=== PATIENT | female | born 1960 | race Caucasian/White ===

== ENCOUNTER 2024-01-17 19:46 | Emergency (ER) | payer OTHER, SELFPAY ==
[2024-01-17 19:50] VITALS: BP 175/112
[2024-01-17 19:56] VITALS: BP 175/112
[2024-01-17 20:13] LABS: % Basophils 1.1 % (0-2); % Eosinophils 2.6 % (0-6); % Immature Granulocytes 0.4 % (0-0.5); % Lymphocytes 43.8 % (20.5-51.1); % Monocytes 8.3 % (1.7-9.3); % Neutrophils 43.8 % (42.2-75.2); Absolute Basophils 0.1 10^3/uL (0-0.2); Absolute Eosinophils 0.2 10^3/uL (0-0.7); Absolute Lymphocytes 3.1 10^3/uL (1.2-3.4); Absolute Monocytes 0.6 10^3/uL (0.1-0.6); Absolute Neutrophils 3.1 10^3/uL (1.4-6.5); Hematocrit 39.4 % (37.0-47.0); Hemoglobin 14.3 g/dL (12.0-16.0); Mean Corp Hgb Conc. 36.3 g/dL (33.0-37.0); Mean Corpuscular Hgb 29.9 pg (27.0-31.0); Mean Corpuscular Volume 82.4 fL (81.0-99.0); Mean Platelet Volume 8.8 fL (7.4-10.4); Nucleated Red Blood Cells % 0 %; Platelet Count 277 10^3/uL (130-400); Red Blood Cell Count 4.78 10^6/uL (4.20-5.40); Red Cell Dist. Width 11.9 % (11.5-14.5)
[2024-01-17 20:14] VITALS: BP 141/107
[2024-01-17 20:32] LABS: ALT (SGPT) 47 U/L (0-35); AST (SGOT) 40 U/L (14-36); Albumin 4.8 g/dl (3.5-5.0); Alkaline Phosphatase 99 U/L (38-126); Blood Urea Nitrogen 19 mg/dl (7-17); Calcium 9.9 mg/dl (8.4-10.2); Carbon Dioxide 23 mmol/L (22-30); Chloride 103 mmol/L (98-107); Glucose 104 mg/dl (70-99); Potassium 4.5 mmol/L (3.5-5.1); Sodium 140 mmol/L (135-145); Total Bilirubin 0.7 mg/dl (0.2-1.3); Total Protein 7.5 g/dl (6.3-8.2); eGFR > 60.00
[2024-01-17 21:00] VITALS: BP 159/104
--- NOTE | 2024-01-17 21:00 | ED.GENMED ---
History of Present Illness
General
Chief Complaint: Blood Pressure Problem
Time Seen by Provider: 01/17/24 20:43
History of Present Illness
History of Present Illness:
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 After the onset of symptoms she did
her blood pressure. Symptoms have gradually improved upon with the emergency department nearly resolved at this time. Denies any diplopia or vision loss. No headaches, chest pain, shortness of breath, nausea, or vomiting. Denies any dizziness or
gait difficulty
Past History
Past History
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
Social History
Tobacco: Non-smoker
Personal:
Living: with family
Review of Systems
Review of Systems
Allergies reviewed?: Yes
All Other Systems: ROS reviewed and negative except as documented in HPI and ROS
Phy Exam
Physical Exam
Physical Exam:
GEN: Well appearing, NAD, WDWN
HEENT: Oral mucosa moist, no scleral icterus, no nasal congestion
Cardiac: Regular rate
Lung: No respiratory distress, no tachypnea
MSK: No gross deformity or injuries
Skin: Good color, no pallor or jaundice, no rashes
Neuro: AO x3; CN II-XII grossly intact. BUE strength 5/5 in all muniz, sensation intact and symmetric. BLE strength 5/5 in all muniz, sensation intact and symmetric, horizontal nystagmus noted patient reports this is chronic
Psych: Calm, cooperative
Course
Orders/Labs/Results
Orders:
Orders
01/17/24 20:06
Complete Blood Count/With Diff Urgent
Comprehensive Metabolic Panel Urgent
01/17/24 20:09
Electrocardiogram (*1) Urgent
Reason for Study: Vertigo / Dizzy
EKG- Treatment ONCE
01/17/24 21:00
CT Head W/o Iv Contrast Urgent
Comment:
Reason For Exam: blurry vision
Abnormal Lab Results
01/17/24
20:06
BUN 19 H mg/dl
(7-17)
Glucose 104 H mg/dl
(70-99)
AST 40 H U/L
(14-36)
ALT 47 H U/L
(0-35)
01/17/24 20:06
01/17/24 20:06
Vital Signs
Initial and Last Documented VS:
Initial Vital Signs
Temp Pulse Resp BP Pulse Ox
98.0 F 109 20 175/112 100
01/17/24 19:50 01/17/24 19:50 01/17/24 19:50 01/17/24 19:50 01/17/24 19:50
Last Documented Vital Signs
Temp Pulse Resp BP Pulse Ox
98.0 F 96 19 136/101 96
01/17/24 19:56 01/17/24 21:45 01/17/24 21:45 01/17/24 21:13 01/17/24 21:45
MDM/Problems Addressed
MDM/Problems Addressed:
Patient's blood pressure gradually trended down in the emergency department. Labs and CT of the head are unremarkable. Do not suspect TIA given the presence of blurry vision and lack of visual field loss diplopia. Patient states she has had this
once in the past and was correlated with high blood pressure. Certainly could have been hypertensive crisis findings atypical. Recommend she follow-up with her primary care in 1 to 2 weeks for blood pressure recheck as she has not medicated for
this current. Clinically well at discharge
*Critical Care Note
Total Time (30-74mins, 75-104mins- exclusive of procedures): Not Applicable
ED Attending Note
-
Portions of this chart may have been created with voice recognition software.� Occasional wrong word or��sound alike� substitutions may have occurred due to the inherent limitations of voice recognition software.
Discharge Plan
Departure
Patient Disposition: Home (Routine Discharge)
Date of Disposition: 01/17/24
Time of Disposition: 21:55
Patient with high blood pressure during this ER visit?: No
Discharge Problem:
Blurred vision, bilateral
Instructions: High Blood Pressure (DC)
Prescriptions:
No Action
Ativan:
1.5 mg PO HS
Effexor
100 mg PO DAILY
Referrals:
Kristie Delaney MD [Family Provider] -
Activity Restrictions/Additional Instructions:
Have your blood pressure rechecked in 1-2 weeks by your primary care physician
If blurry vision returns, please return for re-evaluation
Interventions
Interventions:
*Risk Screen - Suicide Last Done: 01/17/24 19:50
*General Assessment Last Done: 01/17/24 19:50
*Neglect/Abuse Screening Last Done: 01/17/24 19:50
ED- Fall Risk Assessment Last Done: 01/17/24 19:50
*ED COVID-19 Vaccine History Last Done: 01/17/24 19:50
*Nursing Disposition Last Done: 01/17/24 21:59
ED- Cardiac Assessment Last Done: 01/17/24 20:29
ED- Neurological Assessment Last Done: 01/17/24 20:29
ED- Pulmonary Assessment Last Done: 01/17/24 20:29
Discharge Date and Time
Discharge Date/Time: 01/17/24 21:59
Print Language: LUX[place]BOURG[place]
[2024-01-17 21:13] VITALS: BP 136/101
== END 2024-01-17 21:59 | disposition home or self-care (01) ==
LOC: EMR 19:46
PROVIDERS: Student in an Organized Health Care Education/Training Program; EMERGENCY PHYSICIAN Emergency Medicine; FAMILY PHYSICIAN Internal Medicine
DX: H53.8 Other visual disturbances (principal); H55.09 Other forms of nystagmus; R03.0 Elevated blood-pressure reading, without diagnosis of hypertension
CPT/HCPCS: 99284; 70450; 80053; 85025; 93005

== ENCOUNTER 2024-05-21 09:32 | Emergency (ER) | payer OTHER, SELFPAY ==
[2024-05-21 09:33] VITALS: BP 160/119
[2024-05-21 10:04] LABS: COVID-19 Antigen Negative (Negative)
--- NOTE | 2024-05-21 11:00 | ED.GENMED ---
History of Present Illness
General
Chief Complaint: Cold/Flu/URI Symptoms
Source: patient
Exam Limitations: none
Time Seen by Provider: 05/21/24 10:32
Nursing documentation reviewed up to this point in time: agreed with
History of Present Illness
History of Present Illness:
63-year-old female 10 days of the flu cough fatigue nausea decreased p.o. intake 9 pound weight loss diarrhea malaise decreased urination
has been sick with similar complaints
Past History
Past History
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
Social History
Tobacco: Non-smoker
Alcohol: None
Drug: None
Personal:
Living: with family
Employment: Employed
Review of Systems
Review of Systems
All Other Systems: Not applicable
Constitutional: Reports fever, weight loss and fatigue
Respiratory: Reports cough and trouble breathing
Cardiac: Reports chest pain; Denies syncope
ABD/GI: Reports nausea; Denies abdominal pain
: Reports other (Decreased urination)
Musculoskeletal: Reports muscle stiffness
Skin: Reports no symptoms
Neurological: Reports dizzy and weakness
Endocrine: Reports no symptoms
Hematologic/Lymphatic: Reports no symptoms
Psychiatric: Reports no symptoms
Phy Exam
Physical Exam
Physical Exam:
Physical Exam
General: no apparent distress, not acutely ill
Neck: Dry lips
Heart: Tachycardic
Lungs: no acute respiratory distress. clear bilaterally
Abdomen: Not tender
Neuro: alert and oriented. no focal neurological deficits
Skin: no rash
Psychiatric: well kept. interactive and cooperative
Extremities: no edema. no calf tenderness.
Course
Orders/Labs/Results
Orders:
Orders
05/21/24 09:36
Electrocardiogram (*1) Urgent
Reason for Study: Chest Pain
EKG- Treatment ONCE
05/21/24 09:43
COVID-19 Antigen Urgent
Source: Nasal Swab
Influenza A+B Rapid Molecular Urgent
JULIUS Source: Nasal Swab
Specimen Description:
05/21/24 09:53
Chest [CR Chest - 2 Views ] Urgent
Comment:
Reason For Exam: cough, SOB
05/21/24 10:48
0.9% Sodium Chloride 1000 ml [Nss] 1,000 ml IV BOLUS
Dexamethasone Sod Phosphate [Decadron] 10 mg IV NOW STA
Ipratropium/Albuterol Sulfate [Duoneb] 3 ml INH R NOW STA
Ondansetron Injectable [Zofran] 4 mg IV NOW STA
05/21/24 11:15
Complete Blood Count/With Diff Urgent
NT-proBNP Urgent
Troponin I Urgent
05/21/24 11:16
Comprehensive Metabolic Panel Urgent
Abnormal Lab Results
05/21/24 05/21/24
11:15 11:16
WBC 4.6 L 10^3/uL
(4.8-10.8)
RDW 11.4 L %
(11.5-14.5)
Monocytes % 13.0 H %
(1.7-9.3)
Glucose 105 H mg/dl
(70-99)
ALT 40 H U/L
(0-35)
05/21/24 11:15
05/21/24 11:16
Vital Signs
Initial and Last Documented VS:
Initial Vital Signs
Temp Pulse Resp BP Pulse Ox
98.5 F 131 20 160/119 98
05/21/24 09:33 05/21/24 09:33 05/21/24 09:33 05/21/24 09:33 05/21/24 09:33
Last Documented Vital Signs
Temp Pulse Resp BP Pulse Ox
98.5 F 131 20 160/119 98
05/21/24 09:33 05/21/24 09:33 05/21/24 09:33 05/21/24 09:33 05/21/24 09:33
MDM/Problems Addressed
Differential Diagnosis Includes:
Dehydration pneumonia electrolyte abnormality less likely ACS or PE
MDM/Problems Addressed:
Fatigue shortness of breath cough
*Radiology
Radiology exam reviewed: radiology read reviewed
*Pulse Oximetry
Patient hypoxic: no
*EKG
Interpreted by ED Provider?: Yes
Interpretation: abnormal
Comparison EKG: no comparison EKG present
Heart Rate: 88
Rhythm: sinus
Ischemia: non-specific ST changes
*Grinder Machine Knife Setter Interpretation
Rate: Grinder Machine Knife Setter- N/A
*Critical Care Note
Total Time (30-74mins, 75-104mins- exclusive of procedures): Not Applicable
Update Note
Update Note:
Update labs or chest x-ray noted patient feeling better after nebs and fluids
ED Attending Note
-
Portions of this chart may have been created with voice recognition software.� Occasional wrong word or��sound alike� substitutions may have occurred due to the inherent limitations of voice recognition software.
Discharge Plan
Departure
Patient Disposition: Home (Routine Discharge)
Date of Disposition: 05/21/24
Time of Disposition: 12:14
Patient with high blood pressure during this ER visit?: No
Condition: Good
Discharge Problem:
Acute bronchitis, Influenza
Instructions: Flu, Viral Syndrome (DC), Flu in adults - Discharge instructions
Prescriptions:
New
albuterol sulfate 90 mcg/actuation HFA aerosol inhaler
2 puff inhalation Q6H PRN (Reason: shortness of breath or wheezing) Qty: 8.5 0RF
loperamide [Imodium A-D] 2 mg capsule
2 mg PO Q6H PRN (Reason: loose stool) Qty: 20 0RF
No Action
Ativan:
1.5 mg PO HS
Effexor
100 mg PO DAILY
Referrals:
Kristie Delaney MD [Family Provider] -
Interventions
Interventions:
*Risk Screen - Suicide Last Done: 05/21/24 09:33
Discharge Date and Time
Print Language: MACANESE
[2024-05-21 11:09] VITALS: BP 127/101
[2024-05-21] MEDS: DUONEB 3 ML INH (11:18)
[2024-05-21] MEDS: ZOFRAN 4 MG IV (11:18)
[2024-05-21] MEDS: NSS 1000 IV (11:18)
[2024-05-21 11:35] LABS: % Basophils 0.6 % (0-2); % Eosinophils 0.6 % (0-6); % Immature Granulocytes 0.2 % (0-0.5); % Lymphocytes 34.3 % (20.5-51.1); % Neutrophils 51.3 % (42.2-75.2); Absolute Lymphocytes 1.6 10^3/uL (1.2-3.4); Absolute Monocytes 0.6 10^3/uL (0.1-0.6); Absolute Neutrophils 2.4 10^3/uL (1.4-6.5); Hematocrit 41.5 % (37.0-47.0); Hemoglobin 15.1 g/dL (12.0-16.0); Mean Corp Hgb Conc. 36.4 g/dL (33.0-37.0); Mean Corpuscular Hgb 29.9 pg (27.0-31.0); Mean Corpuscular Volume 82.2 fL (81.0-99.0); Mean Platelet Volume 8.9 fL (7.4-10.4); Nucleated Red Blood Cells % 0 %; Platelet Count 193 10^3/uL (130-400); Red Blood Cell Count 5.05 10^6/uL (4.20-5.40); Red Cell Dist. Width 11.4 % (11.5-14.5); White Blood Cell Count 4.6 10^3/uL (4.8-10.8)
[2024-05-21 11:45] LABS: ALT (SGPT) 40 U/L (0-35); AST (SGOT) 29 U/L (14-36); Albumin 4.8 g/dl (3.5-5.0); Alkaline Phosphatase 103 U/L (38-126); Blood Urea Nitrogen 15 mg/dl (7-17); Calcium 9.1 mg/dl (8.4-10.2); Carbon Dioxide 25 mmol/L (22-30); Chloride 101 mmol/L (98-107); Glucose 105 mg/dl (70-99); Potassium 3.5 mmol/L (3.5-5.1); Sodium 138 mmol/L (135-145); Total Bilirubin 0.9 mg/dl (0.2-1.3); Total Protein 7.8 g/dl (6.3-8.2); eGFR > 60.00
[2024-05-21 11:56] LABS: NT-proBNP < 20.0 pg/ml; Troponin I < 0.012 ng/ml
[2024-05-21 12:00] VITALS: BP 116/75
== END 2024-05-21 12:45 | disposition home or self-care (01) ==
LOC: EMR 09:32
PROVIDERS: Emergency Medicine; EMERGENCY PHYSICIAN Emergency Medicine; FAMILY PHYSICIAN Internal Medicine
DX: J20.9 Acute bronchitis, unspecified (principal); J10.1 Influenza due to other identified influenza virus with other respiratory manifestations
CPT/HCPCS: 99285; 94640; 96374; 96361; 71046; 80053; 83880; 84484; 85025; 87502; 87811; 93005

== ENCOUNTER → 2024-09-02 10:24 | Outpatient (REF) | payer OTHER, SELFPAY | LOC: HWRAD 10:24 | PROVIDERS: ATTENDING PHYSICIAN Obstetrics & Gynecology; FAMILY PHYSICIAN Internal Medicine | DX: N95.0 Postmenopausal bleeding (principal) | CPT/HCPCS: 76830; 76856 ==

== ENCOUNTER → 2024-09-04 09:56 | Outpatient (REF) | payer OTHER, SELFPAY | LOC: WDC 09:56 | PROVIDERS: ATTENDING PHYSICIAN Obstetrics & Gynecology; FAMILY PHYSICIAN Internal Medicine | DX: N64.4 Mastodynia (principal) | CPT/HCPCS: 76642; 77062; 77066 ==